=== PATIENT | male | born 1995 | race African-American/Black ===

== ENCOUNTER 2018-04-10 02:30 | Emergency (ER) | payer OTHER ==
[~2018-04-10] VITALS: Ht 175.3 cm; Wt 70.5 kg
[2018-04-10 02:30] VITALS: TEMP 99.5
[2018-04-10 04:08] VITALS: BP 128/79; PULSE 74
== END 2018-04-10 04:10 | disposition home or self-care (01) ==
LOC: COL.ER 02:30
DX: S09.90XA Unspecified injury of head, initial encounter (principal); S01.01XA Laceration without foreign body of scalp, initial encounter; Y04.8XXA Assault by other bodily force, initial encounter; Y92.410 Unspecified street and highway as the place of occurrence of the external cause